=== PATIENT | female | born 1975 | race Caucasian/White ===

== ENCOUNTER 2016-09-26 14:46 | Emergency (ER) | payer OTHER ==
[~2016-09-26] VITALS: Ht 162.6 cm; Wt 74.0 kg
[2016-09-26 14:56] VITALS: Ht 162.6 cm; Wt 74.0 kg
[2016-09-26 17:15] LABS: ADD SCAN DIFF NO
[2016-09-26 17:15] LABS: ADD UMIC YES; URINE BILIRUBIN (Dip) NEGATIVE (NEGATIVE); URINE BLOOD (Dip) 3+ (NEGATIVE); URINE COLOR YELLOW (YELLOW); URINE GLUCOSE (Dip) NEGATIVE (NEGATIVE); URINE KETONES (Dip) TRACE (NEGATIVE); URINE LEUKOCYTE ESTERASE (Dip) NEGATIVE (NEGATIVE); URINE NITRITE (Dip) NEGATIVE (NEGATIVE); URINE TOTAL PROTEIN (Dip) TRACE (NEGATIVE); URINE UROBILINOGEN (Dip) 1.0 E.U./dL (0.1-1.0)
--- NOTE | 2016-09-26 17:38 | RADRPT ---
PROCEDURE: OBSTETRICAL ULTRASOUND WITH ENDOVAGINAL IMAGES CLINICAL INDICATION: Vaginal Bleed () TECHNIQUE: Multiple sonographic images of the pelvis were obtained utilizing a transabdominal and endovaginal technique. The images were reviewed on a PACS workstation. COMPARISON: None. LMP: 07/30/2016 Gestational age by LMP: 8 weeks, 2 days FINDINGS: The uterus measures 9.3 x 4.5 x 5.3 cm. The endometrial echo complex measures 8 mm in thickness. Th ere is no evidence of an intrauterine . Several sub-centimeter Nabothian cysts are identifi ed. The right ovary measures 2.7 x 1.3 x 1.5 cm. The left ovary measures 2.1 x 1.2 x 1.8 cm. There is no rmal vascular flow in both ovaries. No significant ovarian lesions are seen. No significant pelvic free fluid is identified. IMPRESSION: There is mild thickening of the endometrium to 8 mm without evidence of an intrauterine . Findings may be due to an early intrauterine although an ectopic cannot be ent irely excluded. Short-term follow-up ultrasound and serial Beta HCG measurements are recommended fo r further evaluation. Bilateral ovaries and adnexa are unremarkable. RPTAT: EE Physician Heidy Date Time Electronically viewed and signed by Physician Heidy on 09/26/2016 17:37 MONICA
[2016-09-26 17:39] LABS: BACTERIA,URINE FEW; SQUAMOUS EPITHELIAL CELL,UR FEW; URINE RBCS >50 /HPF (0)
[2016-09-26 17:49] LABS: BASOPHILS % 0.5 % (0.0-2.0); EOSINOPHILS % 0.2 % (0.0-7.0); HEMATOCRIT 40.4 % (37.0-47.0); HEMOGLOBIN 13.6 g/dl (12.0-16.0); LYMPHOCYTES # 1.3 10^3/ul (0.8-2.9); LYMPHOCYTES % 30.1 % (15.0-51.0); MEAN CORPUSCULAR HEMOGLOBIN 30.8 pg (29.0-33.0); MEAN CORPUSCULAR HGB CONC 33.7 g/dl (32.0-37.0); MEAN CORPUSCULAR VOLUME 91.4 fl (82.0-101.0); MONOCYTE # 0.4 10^3/ul (0.3-0.9); MONOCYTES % 10.1 % (0.0-11.0); NEUTROPHIL # 2.5 10^3/ul (1.6-7.5); NEUTROPHILS % 58.9 % (39.0-77.0); PLATELET COUNT 265 10^3/UL (140-415); RED BLOOD COUNT 4.42 10^6/ul (4.20-5.40); RED CELL DISTRIBUTION WIDTH 12.2 % (11.5-14.5); WHITE BLOOD COUNT 4.3 10^3/ul (4.8-10.8)
--- NOTE | 2016-09-26 18:35 | ERD ---
ER Documentation Chief Complaint Date/Time DATE: 09/26/16 TIME: 18:31 Chief Complaint VAG BLEED X4 DAYS, , LMP 07/30/16 HPI This a 41-year-old female who presents to the emergency department today complaining of vaginal bleeding for the past 4 days. Patient states that she is approximate 5 weeks . Denies any nausea vomiting, abdominal pain, dysuria. She has an OB appointment on September 30 ROS All systems reviewed and are negative except as per history of present illness. Medications Home Meds Active Scripts Acetaminophen* (Tylophen*) 500 Mg Capsule, 1 CAP PO Q6H Y for PAIN AND OR ELEVATED TEMP, #30 CAP Prov:LORENA MARTÍNEZ PA-C 09/26/16 Allergies Allergies: Coded Allergies: No Known Allergy (Unverified , 09/26/16) PMhx/Soc History of Surgery: Yes () Anesthesia Reaction: No Hx Neurological Disorder: No Hx Respiratory Disorders: No Hx Cardiac Disorders: No Hx Psychiatric Problems: No Hx Miscellaneous Medical Probl: No Hx Alcohol Use: No Hx Substance Use: No Hx Tobacco Use: No Smoking Status: Never smoker Physical Exam Vitals Vital Signs Date Time Temp Pulse Resp B/P Pulse Ox O2 Delivery O2 Flow Rate FiO2 09/26/16 14:56 98.3 97 22 130/73 97 Physical Exam Const: No acute distress Head: Atraumatic Eyes: Normal Conjunctiva ENT: Normal External Ears, Nose and Mouth. Neck: Full range of motion..~ No meningismus. Resp: Clear to auscultation bilaterally Cardio: Regular rate and rhythm, no murmurs Abd: Soft, non tender, non distended. Normal bowel sounds Skin: No petechiae or rashes Neur: Awake and alert Psych: Normal Mood and Affect Result Diagram: 09/26/16 1648 Results 24 hrs Laboratory Tests Test 09/26/16 16:48 09/26/16 16:55 White Blood Count 4.310^3/ul Red Blood Count 4.4210^6/ul Hemoglobin 13.6g/dl Hematocrit 40.4% Mean Corpuscular Volume 91.4fl Mean Corpuscular Hemoglobin 30.8pg Mean Corpuscular Hemoglobin Concent 33.7g/dl Red Cell Distribution Width 12.2% Platelet Count 89448^3/UL Mean Platelet Volume 11.0fl Neutrophils % 58.9% Lymphocytes % 30.1% Monocytes % 10.1% Eosinophils % 0.2% Basophils % 0.5% Nucleated Red Blood Cells % 0.0/100WBC Neutrophils # 2.510^3/ul Lymphocytes # 1.310^3/ul Monocytes # 0.410^3/ul Eosinophils # 0.010^3/ul Basophils # 0.010^3/ul Nucleated Red Blood Cells # 0.010^3/ul Beta HCG, Quantitative 127.8mIU/ml Urine Color YELLOW Urine Clarity CLEAR Urine pH 5.5 Urine Specific [place] 1.025 Urine Ketones TRACE Urine Nitrite NEGATIVE Urine Bilirubin NEGATIVE Urine Urobilinogen 1.0 E.U./dL Urine Leukocyte Esterase NEGATIVE Urine Microscopic RBC >50/HPF Urine Microscopic WBC 0-2/HPF Urine Squamous Epithelial Cells FEW Urine Bacteria FEW Urine Hemoglobin 3+ Urine Glucose NEGATIVE% Urine Total Protein TRACE DIAGNOSTIC IMAGING REPORT Patient: DILLON FORDE : 1975 Age: 41 Sex: F MR #: [id number] DOS: 09/26/16 1633 Ordering MD: LORENA MARTÍNEZ PA-C Location: E Room/Bed: PROCEDURE: OBSTETRICAL ULTRASOUND WITH ENDOVAGINAL IMAGES CLINICAL INDICATION: Vaginal Bleed () TECHNIQUE: Multiple sonographic images of the pelvis were obtained utilizing a transabdominal and endovaginal technique. The images were reviewed on a PACS workstation. COMPARISON: None. LMP: 07/30/2016 Gestational age by LMP: 8 weeks, 2 days FINDINGS: The uterus measures 9.3 x 4.5 x 5.3 cm. The endometrial echo complex measures 8 mm in thickness. There is no evidence of an intrauterine . Several sub-centimeter Nabothian cysts are identified. The right ovary measures 2.7 x 1.3 x 1.5 cm. The left ovary measures 2.1 x 1.2 x 1.8 cm. There is normal vascular flow in both ovaries. No significant ovarian lesions are seen. No significant pelvic free fluid is identified. IMPRESSION: There is mild thickening of the endometrium to 8 mm without evidence of an intrauterine . Findings may be due to an early intrauterine although an ectopic cannot be entirely excluded. Short- term follow-up ultrasound and serial Beta HCG measurements are recommended for further evaluation. Bilateral ovaries and adnexa are unremarkable. RPTAT: EE Junito Dunn Physician Date Time Electronically viewed and signed by Junito Dunn Physician on 09/26/2016 17:37 RA/ CC: LORENA MARTÍNEZ PA-C Procedures/MDM This a 41-year-old female who presents the emergency department today complaining of vaginal bleeding for the past 4 days. Patient indicates she was probably 5 weeks . I did obtain a urine test that was positive.. Given this I did obtain a complete OB workup. Laboratory work shows no elevated white blood cell count. She is not anemic. UA is negative for infection Rh status O+ Beta quant hCG 127.8 Ultrasound shows mild thickening of endometrium to 8 mm without evidence of intrauterine . Findings may be due to an early intrauterine although ectopic cannot be entirely excluded. Short-term follow-up ultrasound and serial beta quant measurements are recommended for further eval. There is no significant pelvic free fluid. There is normal flow to both ovaries. Patient has no abdominal pain on physical exam of low suspicion for ectopic , tubal ovarian abscess or ovarian torsion. Patient symptoms at this time with vaginal bleeding most consistent with early normal versus early failed . I have explained this to the patient. I have explained that she needs to get a repeat beta quant in 48 hours. I have explained to the patient that she may continue to have vaginal bleeding. Patient will be given a prescription for Tylenol. At this time the patient is stable for discharge and outpatient management. Patient should follow up with their PCP in the next 1-2 days. They may return to the emergency department sooner for any persistent or worsening of symptoms. Patient understood and agreed with the plan. Departure Diagnosis: Primary Impression: Vaginal bleeding in patient at less than 20 weeks gestation Condition: Fair LORENA MARTÍNEZ PA-C Sep 26, 2016 18:35
[2016-09-26] MEDS ORDERED: ACET500C5 PO (18:39)
[2016-09-26 18:59] VITALS: BP 113/64; PULSE 75; RESP 16; TEMP 98.3
== END 2016-09-26 19:00 | disposition home or self-care (01) ==
LOC: FTE 14:46
DX: O20.9 Hemorrhage in early pregnancy, unspecified (principal); Z3A.01 Less than 8 weeks gestation of pregnancy
CPT/HCPCS: 36415; 76801; 76817; 81001; 84702; 85025; 86900; 86901; Z7502; 81003

== ENCOUNTER 2016-09-28 14:26 | Emergency (ER) | payer OTHER ==
[~2016-09-28] VITALS: Wt 70.0 kg
[~2016-09-28 14:26] MED LIST: ACET500C5 PO
[2016-09-28 15:44] LABS: ADD SCAN DIFF NO
[2016-09-28 15:47] LABS: BASOPHILS % 0.9 % (0.0-2.0); EOSINOPHILS % 0.7 % (0.0-7.0); HEMATOCRIT 38.1 % (37.0-47.0); HEMOGLOBIN 13.1 g/dl (12.0-16.0); LYMPHOCYTES # 1.3 10^3/ul (0.8-2.9); LYMPHOCYTES % 27.2 % (15.0-51.0); MEAN CORPUSCULAR HEMOGLOBIN 31.1 pg (29.0-33.0); MEAN CORPUSCULAR HGB CONC 34.4 g/dl (32.0-37.0); MEAN CORPUSCULAR VOLUME 90.5 fl (82.0-101.0); MEAN PLATELET VOLUME 10.7 fl (7.4-10.4); MONOCYTE # 0.4 10^3/ul (0.3-0.9); MONOCYTES % 8.5 % (0.0-11.0); NEUTROPHIL # 2.9 10^3/ul (1.6-7.5); NEUTROPHILS % 62.3 % (39.0-77.0); PLATELET COUNT 251 10^3/UL (140-415); RED BLOOD COUNT 4.21 10^6/ul (4.20-5.40); RED CELL DISTRIBUTION WIDTH 12.1 % (11.5-14.5); WHITE BLOOD COUNT 4.6 10^3/ul (4.8-10.8)
--- NOTE | 2016-09-28 16:20 | RADRPT ---
PROCEDURE: OBSTETRICAL ULTRASOUND WITH ENDOVAGINAL IMAGES CLINICAL INDICATION: Vaginal Bleed () TECHNIQUE: Multiple sonographic images of the pelvis were obtained utilizing a transabdominal and endovaginal technique. The images were reviewed on a PACS workstation. COMPARISON: Obstetrical ultrasound from 09/26/2016 LMP: 07/30/2016 Gestational age by LMP: 8 weeks, 4 days FINDINGS: The uterus measures 8.6 x 4.5 x 5.9 cm. There is thickening of the endometrium to 7 mm. Several bailey b-centimeter Nabothian cysts are identified. A possible faint cystic collection is identified in th e endometrium at the level of the fundal apex measuring approximately 4 x 2 mm in maximum axial dime nsions which may be a gestational sac. No yolk sac or pole is identified within it. The right ovary measures 2.3 x 1.6 x 1.1 cm. The left ovary measures 2.0 x 1.2 x 1.7 cm. There is no rmal vascular flow in both ovaries. There is a 1 cm complex cystic lesion with posterior acoustic enhancement and heterogeneous internal echoes in the left ovary which is nonspecific, but may be a hemorrhagic or corpus luteal cyst. No significant pelvic free fluid is identified. IMPRESSION: There is largely stable thickening of the endometrium to 7 mm as well as the appearance of a possibl e faint cystic collection in the endometrium at the level of the fundal apex which may be a gestatio nal sac. No yolk sac or pole is identified within it. It may also be a pseudogestational sac of an ectopic . Short-term follow-up ultrasound and serial Beta HCG measurements are recom mended for further evaluation. 1 cm complex cystic lesion in the left ovary may be a hemorrhagic or corpus luteal cyst. Attention on follow-up is recommended. RPTAT: EE Physician Heidy Date Time Electronically viewed and signed by Junito Dunn Physician on 09/28/2016 16:19 /
[2016-09-28 18:47] VITALS: BP 125/68; PULSE 74; RESP 16; TEMP 98.3
--- NOTE | 2016-09-28 19:13 | ERD ---
ER Documentation Chief Complaint Date/Time DATE: 09/28/16 TIME: 19:09 Chief Complaint vag bleed for a few days. here for hormone recheck seen here 2 days ago . HPI 41-year-old female who is a presents the ED with no significant past medical history for vaginal bleeding that started 6 days ago. Reports that she has had to change 3-4 pads per day. 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 Reports that she was here 2 days ago and her beta hCG was noted to be 127.8. At that time there was no intrauterine . Denies any abdominal pain, nausea, vomiting, diarrhea, chest pain, shortness of breath, dysuria, urgency, frequency. ROS All systems reviewed and are negative except as per history of present illness. Medications Home Meds Active Scripts Acetaminophen* (Tylophen*) 500 Mg Capsule, 1 CAP PO Q6H Y for PAIN AND OR ELEVATED TEMP, #30 CAP Prov:LORENA MARTÍNEZ PA-C 09/26/16 Allergies Allergies: Coded Allergies: No Known Allergy (Unverified , 09/26/16) PMhx/Soc History of Surgery: No Anesthesia Reaction: No Hx Neurological Disorder: No Hx Respiratory Disorders: No Hx Cardiac Disorders: No Hx Psychiatric Problems: No Hx Miscellaneous Medical Probl: No Hx Alcohol Use: No Hx Substance Use: No Hx Tobacco Use: No Smoking Status: Never smoker Physical Exam Vitals Vital Signs Date Time Temp Pulse Resp B/P Pulse Ox O2 Delivery O2 Flow Rate FiO2 09/28/16 18:47 98.3 74 16 125/68 100 Room Air 09/28/16 14:44 98.5 94 20 127/87 99 Physical Exam Const: Xpx-fga-sffffxhma, well-nourished. In no acute distress. Head: Atraumatic, normocephalic Eyes: Normal Conjunctiva without injection. No purulent discharge. PERRLA. EOMI ENT: Normal external ear. Ear canal without erythema. Tympanic membrane pearly denny without effusion or bulging. Nasal canal clear with normal turbinates. Moist oropharynx without tonsillar exudates. Non-erythematous pharynx. Uvula midline. No drooling. No trismus. Neck: No cervical midline tenderness. Full range of motion. No meningismus. No cervical lymphadenopathy. No JVD. Resp: Clear to auscultation bilaterally. No wheezing, rhonchi, rales, or crackles. No accessory muscle use. No retractions. Cardio: Regular rate and rhythm. No murmurs, rubs or gallops. Abd: Soft, non tender, non distended. Normal bowel sounds. No palpable masses. No rebound tenderness. No guarding. Negative McBurney's Point. Negative Valdez's Sign. Skin: Normal skin turgor. No petechiae or rashes Back: No midline tenderness. No CVA tenderness. Ext: No cyanosis, or edema. Distal pulses intact bilaterally. Neur: Awake and alert. Normal gait. Normal coordination. Cranial Nerves II- VII intact. Normal finger to nose. Muscle strength 5/5. Sensation intact. Psych: Normal Mood and Affect Result Diagram: 09/28/16 1534 Results 24 hrs Laboratory Tests Test 09/28/16 15:34 White Blood Count 4.610^3/ul Red Blood Count 4.2110^6/ul Hemoglobin 13.1g/dl Hematocrit 38.1% Mean Corpuscular Volume 90.5fl Mean Corpuscular Hemoglobin 31.1pg Mean Corpuscular Hemoglobin Concent 34.4g/dl Red Cell Distribution Width 12.1% Platelet Count 30368^3/UL Mean Platelet Volume 10.7fl Neutrophils % 62.3% Lymphocytes % 27.2% Monocytes % 8.5% Eosinophils % 0.7% Basophils % 0.9% Nucleated Red Blood Cells % 0.0/100WBC Neutrophils # 2.910^3/ul Lymphocytes # 1.310^3/ul Monocytes # 0.410^3/ul Eosinophils # 0.010^3/ul Basophils # 0.010^3/ul Nucleated Red Blood Cells # 0.010^3/ul Beta HCG, Quantitative 59.4mIU/ml Procedures/MDM This is a 41-year-old female who is a presents the ED complaining of vaginal bleeding that started 6 days ago. Patient is afebrile and nontoxic- appearing. Patient has normal vital signs. An ultrasound, beta-hCG, CBC, type and RH, UA was ordered to evaluate patient. beta Hc which has down trended from 2 days ago which was 127.8 PROCEDURE: OBSTETRICAL ULTRASOUND WITH ENDOVAGINAL IMAGES CLINICAL INDICATION: Vaginal Bleed () TECHNIQUE: Multiple sonographic images of the pelvis were obtained utilizing a transabdominal and endovaginal technique. The images were reviewed on a PACS workstation. COMPARISON: Obstetrical ultrasound from 09/26/2016 LMP: 07/30/2016 Gestational age by LMP: 8 weeks, 4 days FINDINGS: The uterus measures 8.6 x 4.5 x 5.9 cm. There is thickening of the endometrium to 7 mm. Several sub-centimeter Nabothian cysts are identified. A possible faint cystic collection is identified in the endometrium at the level of the fundal apex measuring approximately 4 x 2 mm in maximum axial dimensions which may be a gestational sac. No yolk sac or pole is identified within it. The right ovary measures 2.3 x 1.6 x 1.1 cm. The left ovary measures 2.0 x 1.2 x 1.7 cm. There is normal vascular flow in both ovaries. There is a 1 cm complex cystic lesion with posterior acoustic enhancement and heterogeneous internal echoes in the left ovary which is nonspecific, but may be a hemorrhagic or corpus luteal cyst. No significant pelvic free fluid is identified. IMPRESSION: There is largely stable thickening of the endometrium to 7 mm as well as the appearance of a possible faint cystic collection in the endometrium at the level of the fundal apex which may be a gestational sac. No yolk sac or pole is identified within it. It may also be a pseudogestational sac of an ectopic . Short-term follow-up ultrasound and serial Beta HCG measurements are recommended for further evaluation. 1 cm complex cystic lesion in the left ovary may be a hemorrhagic or corpus luteal cyst. Attention on follow-up is recommended. Patient's bleeding symptoms have stabilized while in the department. This case was discussed with my supervising physician, Dr. Elias. With agreed to consult the on-call. Dr. Quiñones stated that patient should return to the ED in 2 days for a repeat beta hCG and possible ultrasound as ectopic is unlikely however cannot be ruled out at this time.. Low suspicion for symptomatic anemia, sepsis, PID, appendicitis, ovarian torsion, tubo-ovarian abscess, surgical abdomen, or other emergent conditions. Patient was educated that there is a risk for threatened . Discharge medications: Tylenol Patient to follow up with SPLITTING MACHINE OPERATOR in 2 days for further evaluation and treatment. Patient is to return sooner to the ED for any worsening symptoms. Patient's questions were answered. Patient understood and agreed with discharge plan. Departure Diagnosis: Primary Impression: Vaginal bleeding before 22 weeks gestation Condition: Stable Patient Instructions: Possible Miscarriage (Threatened ) Referrals: [facility] YOU HAVE RECEIVED A MEDICAL SCREENING EXAM AND THE RESULTS INDICATE THAT YOU DO NOT HAVE A CONDITION THAT REQUIRES URGENT TREATMENT IN THE EMERGENCY DEPARTMENT. FURTHER EVALUATION AND TREATMENT OF YOUR CONDITION CAN WAIT UNTIL YOU ARE SEEN IN YOUR DOCTORS OFFICE WITHIN THE NEXT 1-2 DAYS. IT IS YOUR RESPONSIBILITY TO MAKE AN APPOINTMENT FOR FOLOW-UP CARE. IF YOU HAVE A PRIMARY DOCTOR --you should call your primary doctor and schedule an appointment IF YOU DO NOT HAVE A PRIMARY DOCTOR YOU CAN CALL OUR PHYSICIAN REFERRAL HOTLINE AT IF YOU CAN NOT AFFORD TO SEE A PHYSICIAN YOU CAN CHOSE FROM THE FOLLOWING [facility] [address] [facility] [address] [facility] [address] [facility] [address] [facility] [address] [facility]. [facility] [address] [facility]. [facility] YOU HAVE RECEIVED A MEDICAL SCREENING EXAM AND THE RESULTS INDICATE THAT YOU DO NOT HAVE A CONDITION THAT REQUIRES URGENT TREATMENT IN THE EMERGENCY DEPARTMENT. FURTHER EVALUATION AND TREATMENT OF YOUR CONDITION CAN WAIT UNTIL YOU ARE SEEN IN YOUR DOCTORS OFFICE WITHIN THE NEXT 1-2 DAYS. IT IS YOUR RESPONSIBILITY TO MAKE AN APPOINTMENT FOR FOLOW-UP CARE. IF YOU HAVE A PRIMARY DOCTOR --you should call your primary doctor and schedule and appointment IF YOU DO NOT HAVE A PRIMARY DOCTOR YOU CAN CALL OUR PHYSICIAN REFERRAL HOTLINE AT . IF YOU CAN NOT AFFORD TO SEE A PHYSICIAN YOU CAN CHOSE FROM THE FOLLOWING [facility] INSTITUTIONS: [facility] [address] [place] [address] [facility] [address] [place] [address] [facility] [address] [place] [address] SPLITTING MACHINE OPER[place] [id number] [facility] [address] [place] [address] OFFICE FAX , [place] [address] [place] [address] DR. JOHN, [place] [address] [place] [address] DR PERKINS, [facility] [address] [facility], [address], [place] [address] [facility] [address] [address], [place] [address] [facility] [address] [place] [address] [address] [facility] [address] - [address] VASQUEZ, ANA LAURA [address] [address] DR TALLEY, DEVAUGHN [address] [facility]. [address], [place] [address] DR LOPEZ, FARID [address] [place], [place] [id number] [facility] Hours: 8:00 am - 5:00 pm Additional Instructions: Volver al ED en 2 villafuerte para un ultrasonido de repeticin de beta hcg y la posible Regrese a estas instalaciones si no se mejora lizbeth esperbamos o lizbeth le dijimos. VIDHYA ALBRIGHT PA-C Sep 28, 2016 19:12
== END 2016-09-28 18:48 | disposition home or self-care (01) ==
LOC: FTE 14:26
DX: O20.9 Hemorrhage in early pregnancy, unspecified (principal); Z3A.08 8 weeks gestation of pregnancy
CPT/HCPCS: 36415; 76801; 76817; 84702; 85025

== ENCOUNTER 2016-09-30 13:36 | Emergency (ER) | payer OTHER ==
[~2016-09-30] VITALS: Wt 72.0 kg
--- NOTE | 2016-09-30 14:54 | ERD ---
ER Documentation Chief Complaint Date/Time DATE: 09/30/16 TIME: 14:44 Chief Complaint PELVIC PAIN 6 WEEKS PREG WITH VB HPI 41-year-old female who is a presents the ED for repeat beta hCG. Patient has history of vaginal bleeding that started 8 days ago. Patient reports that she previously had to change 3-4 pads a day but has improved to 1 pad per day during the past 3 days. States that she does not have an [employer]. She had 2 previous visits to the ED and beta-hCG was drawn. Beta hCG value was 127.8 on September 26 and 59.4 on September 28. OB ultrasound was also done on September 28 that shows as largely stable thickening of the endometrium to 7 mm as well as the appearance of a possible faint cystic collection in the endometrium at the level of the fundal apex which may be a gestational sac. No yolk sac or pole is identified within it. It may also be a pseudogestational sac of an ectopic Pt denies any fever, abdominal pain, nausea, vomiting, diarrhea, chest pain, shortness of breath, dysuria or diarrhea. ROS All systems reviewed and are negative except as per history of present illness. Medications Home Meds Active Scripts Acetaminophen* (Tylophen*) 500 Mg Capsule, 1 CAP PO Q6H Y for PAIN AND OR ELEVATED TEMP, #30 CAP Prov:LORENA MARTÍNEZ PA-C 09/26/16 Allergies Allergies: Coded Allergies: No Known Allergy (Unverified , 09/26/16) PMhx/Soc History of Surgery: No Anesthesia Reaction: No Hx Neurological Disorder: No Hx Respiratory Disorders: No Hx Cardiac Disorders: No Hx Psychiatric Problems: No Hx Miscellaneous Medical Probl: No Hx Alcohol Use: No Hx Substance Use: No Hx Tobacco Use: No Physical Exam Vitals Vital Signs Date Time Temp Pulse Resp B/P Pulse Ox O2 Delivery O2 Flow Rate FiO2 09/30/16 13:43 98.0 82 18 108/69 99 Physical Exam Physical Exam CONST: Well-developed, well-nourished, in no acute distress. Nontoxic in appearance. HEENT: Atraumatic. Normal conjunctiva. EOM intact. TM intact. External ear is normal. Clear oropharnyx without erythema. No uvular deviation. Moist mucous membranes. Supple neck. No meningismus. No submandibular induration. RESP: Clear to auscultation bilaterally. No wheezing. CARDIO: Regular rate and rhythm, no murmurs. ABD: Soft, non tender, non distended. Normal bowel sounds. No McBurney's point tenderness. No guarding or rigidity. No peritoneal signs. SKIN: No petechiae or rashes. BACK: No midline or flank tenderness. EXT: No cyanosis or edema. Distal pulses equal and bilateral. NEURO: Awake and alert, appropriate for age. Result Diagram: 09/30/16 1430 Results 24 hrs Laboratory Tests Test 09/30/16 14:30 White Blood Count 5.110^3/ul Red Blood Count 4.4810^6/ul Hemoglobin 13.7g/dl Hematocrit 40.0% Mean Corpuscular Volume 89.3fl Mean Corpuscular Hemoglobin 30.6pg Mean Corpuscular Hemoglobin Concent 34.3g/dl Red Cell Distribution Width 12.0% Platelet Count 11298^3/UL Mean Platelet Volume 10.7fl Neutrophils % 58.0% Lymphocytes % 32.7% Monocytes % 8.1% Eosinophils % 0.8% Basophils % 0.2% Nucleated Red Blood Cells % 0.0/100WBC Neutrophils # 2.910^3/ul Lymphocytes # 1.710^3/ul Monocytes # 0.410^3/ul Eosinophils # 0.010^3/ul Basophils # 0.010^3/ul Nucleated Red Blood Cells # 0.010^3/ul Beta HCG, Quantitative 23.9mIU/ml Procedures/MDM EMERGENCY DEPARTMENT COURSE/MEDICAL DECISION MAKING This is a 41-year-old female who comes to the emergency room for a repeat beta hCG draw. Latest value is 23.9. Previous to ED visits shows beta hCG value of 127.8 on September 26 and 59.4 on September 28. Patient states that her vaginal bleeding has been minimal for the past 3 days. Patient denies fever, abdominal pain, nausea or vomiting. Case was presented to Dr. Shaikh and we both agreed to have the patient return to ED in 2 days to recheck her beta hCG. My primary diagnosis is vaginal bleeding. Differential diagnoses considered but not limited to acute appendicitis, diverticulitis, pancreatitis, cholecystitis, gastritis, pyelonephritis, UTI, constipation, inflammatory bowel disease, ectopic , ovarian torsion.. Pt is hemodynamically stable upon reassessment. The patient was discharged for outpatient management. Patient was instructed to return to ED 2 days for a blood draw. [employer] resources were provided to the patient. The patient was advised to followup with their PMD in 1-2 days and to return to the Emergency Department if there are any new or worsening symptoms. The patient understood and agreed with the diagnosis, treatment and plan. Patient is stable for discharge at this time. Departure Diagnosis: Primary Impression: Vaginal bleeding before 22 weeks gestation Condition: Stable Patient Instructions: Vaginal Bleed in [facility]errals: [facility] [employer] REFERRAL LIST Additional Instructions: volver a ED en 2 villafuerte para un sorteo de adriane seguimiento con un obstetra dentro de 1 semana Seguimiento con bailey mdico de atencin primaria en 1-2 villafuerte. Volver al Departamento de la emergencia inmediatamente si tiene alguno nuevo o empeoramiento de los sntomas, incontrolada fiebre u otros sntomas inexplicables. [place] todos los medicamentos lizbeth lo indique. MELANIE CHIU Sep 30, 2016 14:54
[2016-09-30 15:00] LABS: ADD SCAN DIFF NO
[2016-09-30 15:03] LABS: BASOPHILS % 0.2 % (0.0-2.0); EOSINOPHILS % 0.8 % (0.0-7.0); HEMOGLOBIN 13.7 g/dl (12.0-16.0); LYMPHOCYTES # 1.7 10^3/ul (0.8-2.9); LYMPHOCYTES % 32.7 % (15.0-51.0); MEAN CORPUSCULAR HEMOGLOBIN 30.6 pg (29.0-33.0); MEAN CORPUSCULAR HGB CONC 34.3 g/dl (32.0-37.0); MEAN CORPUSCULAR VOLUME 89.3 fl (82.0-101.0); MEAN PLATELET VOLUME 10.7 fl (7.4-10.4); MONOCYTE # 0.4 10^3/ul (0.3-0.9); MONOCYTES % 8.1 % (0.0-11.0); NEUTROPHIL # 2.9 10^3/ul (1.6-7.5); PLATELET COUNT 282 10^3/UL (140-415); RED BLOOD COUNT 4.48 10^6/ul (4.20-5.40); WHITE BLOOD COUNT 5.1 10^3/ul (4.8-10.8)
== END 2016-09-30 16:25 | disposition home or self-care (01) ==
LOC: FTE 13:36
DX: O20.9 Hemorrhage in early pregnancy, unspecified (principal); R10.2 Pelvic and perineal pain; Z3A.08 8 weeks gestation of pregnancy
CPT/HCPCS: 84702; 85025; Z7502; 99283

== ENCOUNTER 2016-10-02 15:37 | Emergency (ER) | payer OTHER ==
[~2016-10-02] VITALS: Ht 162.6 cm; Wt 72.0 kg
[2016-10-02 15:41] VITALS: Ht 162.6 cm; Wt 72.0 kg
--- NOTE | 2016-10-02 19:21 | ERD ---
ER Documentation Chief Complaint Date/Time DATE: 10/02/16 TIME: 19:20 Chief Complaint for recheck on labs , 6 weeks preg HPI This 41-year-old female status post 6 weeks with vaginal bleeding. She is slowly decreasing hCG is an empty uterus on recent ultrasound. She is advised to have one additional quantitative hCG check with primary doctor OB but she checks in today for repeat hCG level. She denies any bleeding, pain, fevers and has no symptoms. ROS All systems reviewed and are negative except as per history of present illness. Medications Home Meds Active Scripts Acetaminophen* (Tylophen*) 500 Mg Capsule, 1 CAP PO Q6H Y for PAIN AND OR ELEVATED TEMP, #30 CAP Prov:LORENA MARTÍNEZ PA-C 09/26/16 Allergies Allergies: Coded Allergies: No Known Allergy (Unverified , 09/26/16) PMhx/Soc History of Surgery: No Anesthesia Reaction: No Hx Neurological Disorder: No Hx Respiratory Disorders: No Hx Cardiac Disorders: No Hx Psychiatric Problems: No Hx Miscellaneous Medical Probl: No Hx Alcohol Use: No Hx Substance Use: No Hx Tobacco Use: No Smoking Status: Never smoker Physical Exam Vitals Vital Signs Date Time Temp Pulse Resp B/P Pulse Ox O2 Delivery O2 Flow Rate FiO2 10/02/16 15:41 98.2 85 18 106/64 99 Physical Exam Const: [] Alert, [id number]. Head: Atraumatic Eyes: Normal Conjunctiva ENT: Normal External Ears, Nose and Mouth. Neck: Full range of motion..~ No meningismus. Resp: Clear to auscultation bilaterally Cardio: Regular rate and rhythm, no murmurs Abd: Soft, non tender, non distended. Normal bowel sounds Skin: No petechiae or rashes Back: No midline or flank tenderness Ext: No cyanosis, or edema Neur: Awake and alert Psych: Normal Mood and Affect Results 24 hrs Laboratory Tests Test 10/02/16 18:24 Beta HCG, Quantitative 13.3mIU/ml Procedures/MDM Repeat quantitative hCG is 13 today significantly decreased from previous visits. Patient appears to have a complete with signs and symptoms do not suggest ectopic , retained products, acute abdomen, additional complications. She will discharged home instructions return for bleeding, fevers, pain, new worsening symptoms with primary doctor. Departure Diagnosis: Primary Impression: Complete Condition: Stable Patient Instructions: Miscarriage, Spontaneous (Completed) Additional Instructions: NO NECESITA REGRESA. Cheque otro vez con bailey doctor primario en el proximo cabral or regresa para mas o nueva simptomas. RALPH GIRARD MD Oct 02, 2016 19:21
[2016-10-02 19:40] VITALS: BP 127/62; PULSE 76; RESP 16; TEMP 97.8
== END 2016-10-02 19:42 | disposition home or self-care (01) ==
LOC: FTE 15:37
DX: O03.9 Complete or unspecified spontaneous abortion without complication (principal)
CPT/HCPCS: 84702; 99283